=== PATIENT | female | born 1955 | race African-American/Black ===

== ENCOUNTER 2018-09-10 12:56 | Outpatient (CLI) | payer MEDICARE, OTHER | END 2018-09-10 12:57 | disposition home or self-care (01) | LOC: BICMAMMO 12:56 | PROVIDERS: ATTEND Family Medicine | DX: Z12.31 Encounter for screening mammogram for malignant neoplasm of breast (principal); Z80.3 Family history of malignant neoplasm of breast | CPT/HCPCS: 77063; 77067 ==

== ENCOUNTER 2018-10-01 13:04 | Outpatient (CLI) | payer MEDICARE, OTHER ==
--- NOTE | 2018-10-01 15:15 | BD ---
DEXA BONE DENSITY SCAN: DATE: 10/01/2018. COMPARISON: 04/20/2015. HISTORY: A 63-year-old postmenopausal female undergoing screening for osteoporosis. FINDINGS: Lumbar Spine: BMD (g/cm2) L1 0.913 T-Score: -0.7 Previous: -1.3 L2 0.910 T-Score: -1.1 Previous: -1.9 L3 0.945 T-Score: -1.3 Previous: -1.7 L4 0.947 T-Score: -1.0 Previous: -1.7 L1-L4 0.931 T-Score: -1.1 Previous: -1.7 Femoral Neck: 0.723 T-Score: -1.1 Previous: -1.8 Total Femur: 0.939 T-Score: 0.0 Previous: -0.6 The FRAX-WHO fracture risk assessment tool is not reported as the patient is currently being treated for osteoporosis. Impression: Lumbar spine and femoral neck osteopenia, which correlates with a moderately increased risk for fract ure. The patient's T-scores have improved when compared to the prior examination as detailed above. POS: BOBO
== END 2018-10-01 13:05 | disposition home or self-care (01) ==
LOC: BICMAMMO 13:04
PROVIDERS: ATTEND Family Medicine
DX: Z13.820 Encounter for screening for osteoporosis (principal); M85.89 Other specified disorders of bone density and structure, multiple sites
CPT/HCPCS: 77080

== ENCOUNTER 2018-11-06 13:06 | Outpatient (CLI) | payer MEDICARE, MEDICAID ==
--- NOTE | 2018-11-06 15:50 | ULT ---
THYROID ULTRASOUND: 11/06/2018 HISTORY: ICD-10 E04.1: Nontoxic single thyroid nodule. COMPARISON: 06/15/2015 FINDINGS: ISTHMUS: 0.6 cm AP RIGHT LOBE: 3.2 x 1.1 x 1.7 cm LEFT LOBE: 3.8 x 1.1 x 1.3 cm The previously demonstrated, moderately large, exophytic, pedunculated nodule, external to and abutti ng the inferior edge of lower pole of the right lobe, has been surgically excised. 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 The previously demonstrated nodule at the mid pole of the left lobe, located anteriorly, encroaching upon the isthmus, currently measures 0.9 x 0.5 x 0.8 cm. This solid nodule is unchanged and does not require further followup. Previously, there was a complex nodule in the lower pole of the left lobe. The inner component was a pproximately 1 cm in diameter and was surrounded by a moderately hyperechoic halo with dimensions of 1.7 x 1.1 cm. Now, that left lower pole has a significantly different appearance. There is only a s adelaida solid nodule in that location, without a hyperechoic halo. It measures 1 x 0.9 x 1 cm. Composition: Solid: 2 points Echogenicity: Hypoechoic: 2 points Shape: Wider than tall: 0 points Margin: Smooth: 0 points Echogenic foci: 0: 0 points TOTAL POINTS: 4 TI-RADS category 4-Moderately suspicious. RECOMMENDATIONS: FNA if greater than or equal to 1.5 cm. Follow if greater than or equal to 1 cm (at 1, 2, 3, and 5 years). The uncertainty is whether this nodule represents the inner component of the complex nodule in this l ocation demonstrated in 2014. If it is, it would indicate stability for over 3 years. Alternatively , this would be a new nodule if the previous left lower pole nodule has been surgically resected. Be cause of the uncertainty and because of discontinuity of the followup since 06/15/2015, to err on the side of caution, further followup will be recommended, beginning in one year. IMPRESSION: 1. Currently there are two solid thyroid nodules: 2. One at the medial aspect of the left lobe, encroaching upon the isthmus, unchanged since 06/15/20 15, consistent with a benign nodule. 3. There is a 1 cm nodule in the left lower pole. See commends above. Recommend serial followup thyroid ultrasounds for this at 1, 2, 3, and 5 years from now. POS: BOBO
== END 2018-11-06 13:07 | disposition home or self-care (01) ==
LOC: BICULT 13:06
PROVIDERS: ATTEND Family Medicine
DX: E04.2 Nontoxic multinodular goiter (principal)
CPT/HCPCS: 76536

== ENCOUNTER 2019-10-07 09:29 | Outpatient (CLI) | payer MEDICARE, MEDICAID ==
--- NOTE | 2019-10-07 17:04 | CT ---
CT ABDOMEN AND PELVIS WITH AND WITHOUT IV CONTRAST 10/07/2019 CLINICAL INFORMATION: Lower abdominal pain and vaginal bleeding. History of hysterectomy in 2001. COMPARISON: None. Technique: Multiple contiguous axial CT images are obtained through the abdomen and pelvis with IV contrast. Cor onal reformatted images are provided. FINDINGS: Lower Chest: Thin-walled cyst is seen in the right lower lobe with minimal dependent atelectasis at e ach lung base. Approximately 4 mm pulmonary nodule seen at the lateral aspect right lower lobe. Vessels: Vascular calcifications and atherosclerotic plaque is seen in the abdominal aorta and involv ing the iliac arteries. Abdomen: Portal vein:Patent Gallbladder: Surgically absent Liver: Mildly diminished attenuation relative to the spleen suggesting mild fatty infiltration. No fo chandni hepatic lesion is identified. Spleen: within normal limits. Pancreas: within normal limits. Adrenals: Slight nodular thickening. Kidneys: No renal or ureteral calculi are seen bilaterally, and there is no hydronephrosis. Kidneys d emonstrate a normal CT appearance for phase of imaging on post contrasted exam. Bowel: Scattered colonic diverticula are seen with small amount retained fecal material in the colon. Loops of small bowel are normal in caliber. Appendix: The appendix is visualized and normal in caliber. Peritoneum: No ascites or free air; no fluid collection. Mesentery and Retroperitoneum: No enlarged mesenteric or retroperitoneal lymph nodes. Abdominal Wall: Small fat-containing supraumbilical midline ventral abdominal wall hernia is present. Pelvis: Reproductive Organs: Uterus is surgically absent. Pelvis within normal limits. Bladder: Partially distended and grossly normal in appearance. Bones: Degenerative changes in the lumbar spine greatest at the lumbosacral junction. IMPRESSION: 1. No acute findings are seen in the abdomen or pelvis. 2. Approximately 4 mm noncalcified pulmonary nodule right lower lobe. 2. Postsurgical changes related to cholecystectomy as well as hysterectomy. 3. Colonic diverticulosis. 4. Small fat-containing ventral abdominal wall hernia. 5. Mild fatty infiltration liver.
== END 2019-10-07 09:30 | disposition home or self-care (01) ==
LOC: SCSCT 09:29
PROVIDERS: ATTEND Obstetrics & Gynecology Female Pelvic Medicine and Reconstructive Surgery
DX: M54.5 Low back pain (principal); K76.0 Fatty (change of) liver, not elsewhere classified; R91.1 Solitary pulmonary nodule; K57.30 Diverticulosis of large intestine without perforation or abscess without bleeding; K43.9 Ventral hernia without obstruction or gangrene; Z90.49 Acquired absence of other specified parts of digestive tract; Z90.710 Acquired absence of both cervix and uterus
CPT/HCPCS: 74178

== ENCOUNTER 2022-02-23 11:05 | Outpatient (CLI) | payer MEDICARE, MEDICAID | END 2022-02-23 11:06 | disposition home or self-care (01) | LOC: RAD 11:05 | PROVIDERS: ATTEND Internal Medicine Critical Care Medicine | DX: R06.00 Dyspnea, unspecified (principal) | CPT/HCPCS: 71046 ==

== ENCOUNTER 2022-05-05 13:52 | Outpatient (CLI) | payer MEDICARE, MEDICAID | END 2022-05-05 13:53 | disposition home or self-care (01) | LOC: RAD 13:52 | PROVIDERS: ATTEND Internal Medicine Critical Care Medicine | DX: R06.00 Dyspnea, unspecified (principal) | CPT/HCPCS: 71046 ==

== ENCOUNTER 2022-08-10 11:05 | Outpatient (CLI) | payer MEDICARE | END 2022-08-10 11:06 | disposition home or self-care (01) | LOC: RAD 11:05 | PROVIDERS: ATTEND Internal Medicine Critical Care Medicine | DX: R06.00 Dyspnea, unspecified (principal) | CPT/HCPCS: 71046 ==

== ENCOUNTER 2023-11-09 11:31 | Outpatient (CLI) | payer MEDICARE, MEDICAID ==
[2023-11-09 13:01] LABS: #Eosinphils 0.1 10x3/uL (0.0-0.5); #Monocytes 0.6 10x3/uL (0.0-1.1); #Neutrophils 4.7 10x3/uL (1.5-8.4); %Basophils 0.4 % (0.0-2.0); %Eosinophils 1.9 % (0.0-6.0); %Lymphocytes 20.6 % (18.0-47.0); %Monocytes 8.7 % (0.0-10.0); %Neutrophils 68.1 % (40.0-75.0); Hematocrit 36.4 % (34.9-44.5); Hemoglobin 11.7 g/dL (12.0-15.5); Mean Corpuscular HGB CONC 32.1 g/dL (32.0-36.0); Mean Corpuscular Hemoglobin 31.2 pg (27.0-33.0); Mean Corpuscular Volume 97.1 fl (81.6-98.3); Mean Platelet Volume 10.6 fl (7.4-10.4); Platelet Count 267 10x3/uL (150-450); RBC Distribution Width 13.4 % (11.5-14.5); Red Blood Cell (RBC) Count 3.75 10x6/uL (3.90-5.03); White Blood Cell (WBC) Count 6.9 10x3/uL (3.5-10.5)
[2023-11-09 13:50] LABS: Anion Gap 16 mmol/L (10-20); BUN (Urea Nitrogen) 20 mg/dL (9.8-20.1); Calc. Creatinine Clearance 0 mL/min (70-130); Calcium 10.4 mg/dL (7.8-10.44); Carbon Dioxide 23 mmol/L (23-31); Chloride 106 mmol/L (98-107); Estimated GFR 55; Glucose 119 mg/dL (80-115); Potassium 4.6 mmol/L (3.5-5.1); Sodium 140 mmol/L (136-145)
== END 2023-11-09 11:32 | disposition home or self-care (01) ==
LOC: LABBT 11:31
PROVIDERS: ATTEND Specialist
DX: Z01.818 Encounter for other preprocedural examination (principal); K43.9 Ventral hernia without obstruction or gangrene
CPT/HCPCS: 71046; 80048; 85025; 93005; 93010

== ENCOUNTER 2023-11-16 07:44 | Day surgery (SDC) | payer MEDICARE, MEDICAID ==
[2023-11-09 12:08] VITALS: BMI 36.6
[2023-11-16] MEDS ORDERED: Acetaminophen 500 MG TAB ONE (08:41)
[2023-11-16] MEDS ORDERED: Ketorolac Tromethamine 30 MG (1 mL) VIAL ONE (08:41)
[2023-11-16] MEDS ORDERED: EPINEPHrine 1 MG/ML VIAL ONE (11:18)
[2023-11-16] MEDS ORDERED: Bupivacaine 0.25% HCL 30 ML VIAL ONE (11:18)
[2023-11-16] MEDS ORDERED: Sodium Chloride 0.9% 100 ML ONE (11:33)
[2023-11-16] MEDS ORDERED: CEFAZOLIN 2 GM VIAL ONE (11:33)
[2023-11-16] MEDS ORDERED: PROPOFOL 20 ML ONE (11:40)
[2023-11-16] MEDS ORDERED: fentaNYL PF 100 MCG/2 ML SYRINGE ONE (11:40)
[2023-11-16] MEDS ORDERED: Etomidate 40 MG (20 mL) VIAL ONE (11:41)
[2023-11-16] MEDS ORDERED: Rocuronium Bromide 10 MG/ML (10ML VIAL) ONE (12:08)
[2023-11-16] MEDS ORDERED: Ondansetron PF 4 MG/2 ML Vial ONE (12:09)
[2023-11-16] MEDS ORDERED: Lidocaine 1% PF 5 ML VIAL ONE (12:15)
[2023-11-16] MEDS ORDERED: SUGAMMADEX SODIUM 200 MG/2 ML VIAL ONE ×2 (12:17)
[2023-11-16] MEDS ORDERED: fentaNYL 50 mcg/mL 1 mL Vial ONE (13:20)
== END 2023-11-16 14:44 | disposition home or self-care (01) ==
LOC: SDC 07:44
PROVIDERS: ATTEND Specialist
PROC: 0WUF0JZ Supplement Abdominal Wall with Synthetic Substitute, Open Approach (ICD-10-PCS; principal; 2023-11-16)
DX: K43.2 Incisional hernia without obstruction or gangrene (principal); I10 Essential (primary) hypertension; J45.909 Unspecified asthma, uncomplicated; E11.9 Type 2 diabetes mellitus without complications; E03.9 Hypothyroidism, unspecified; M19.90 Unspecified osteoarthritis, unspecified site; Z86.73 Personal history of transient ischemic attack (TIA), and cerebral infarction without residual deficits; Z79.899 Other long term (current) drug therapy; Z79.890 Hormone replacement therapy; Z79.84 Long term (current) use of oral hypoglycemic drugs; Z90.89 Acquired absence of other organs; Z95.5 Presence of coronary angioplasty implant and graft; Z88.5 Allergy status to narcotic agent
CPT/HCPCS: 49591; A6258; C1781; J0171; J3010; J0665; J1885; J2405; J2704; J3490

== ENCOUNTER 2024-08-05 13:07 | Outpatient (CLI) | payer MEDICARE, MEDICAID | END 2024-08-05 13:08 | disposition home or self-care (01) | LOC: RAD 13:07 | PROVIDERS: ATTEND Internal Medicine Critical Care Medicine | DX: R06.00 Dyspnea, unspecified (principal); I51.7 Cardiomegaly; R09.89 Other specified symptoms and signs involving the circulatory and respiratory systems | CPT/HCPCS: 71046 ==

== ENCOUNTER 2025-08-04 14:00 | Outpatient (CLI) | payer MEDICARE, MEDICAID | END 2025-08-04 14:01 | disposition home or self-care (01) | LOC: RAD 14:00 | PROVIDERS: ATTEND Internal Medicine Critical Care Medicine | DX: R06.00 Dyspnea, unspecified (principal) | CPT/HCPCS: 71046 ==